=== PATIENT | male | born 1965 | race Caucasian/White ===

== ENCOUNTER 2020-06-14 06:50 | Emergency (ER) | payer OTHER ==
[~2020-06-14] VITALS: Ht 157.5 cm; Wt 79.8 kg
[2020-06-14 07:28] VITALS: BP 149/92
[2020-06-14] MEDS ORDERED: ACETAMINOPHEN EXTRA STRENGTH 500 MG TAB PO ONE (07:30)
--- NOTE | 2020-06-14 07:55 | NUR ---
54/M BIB C/O FEVER, COUGH,MARTINEZ X 3 DAYS. FBS 230 AT THIS TIME. ORAL TEMP 100.6 AT THIS TIME.PMH:DM. PATIENT STATES PAIN OF 7/10 AT THIS TIME.
--- NOTE | 2020-06-14 07:58 | NUR ---
COVID SWAB DONE. SENT TO LAB.
[2020-06-14 08:40] VITALS: BP 121/68
--- NOTE | 2020-06-14 08:40 | NUR ---
Patient discharged with v/s stable. Written and verbal after care instructions given and explained. Patient alert, oriented and verbalized understanding of instructions. Ambulatory with steady gait. All questions addressed prior to discharge. ID band removed. Patient advised to follow up with PMD. Rx of AZITHROMYCIN given. Patient educated on indication of medication including possible reaction and side effects. Opportunity to ask questions provided and answered.
--- NOTE | 2020-06-17 14:41 | NUR ---
Covid results received from lab. Results = POSITIVE. Hard copy requested from lab and placed in infection controls mailbox.
== END 2020-06-14 08:40 | disposition home or self-care (01) ==
LOC: MED 06:50
DX: U07.1 COVID-19 (principal); E11.9 Type 2 diabetes mellitus without complications
CPT/HCPCS: 99283; U0003

== ENCOUNTER 2020-06-16 18:56 | Inpatient (IN) | payer OTHER, SELFPAY ==
[~2020-06-16] VITALS: Ht 157.5 cm; Wt 80.7 kg
--- NOTE | 2020-06-16 19:10 | NUR ---
PT TAKEN TO BED 10
[2020-06-16 19:14] VITALS: BP 144/71
--- NOTE | 2020-06-16 19:20 | NUR ---
54 Y/O MALE PRESENTED TO ED C/O SOB & COUGH X 2 DAYS - PT WAS SEEN HERE ON 06/14/20 FOR FEVER AND WAS SWABBED COVID PCR ( STILL PENDING AT THIS TIME). PT SAO2 72% ON RM AIR. RR EVEN AND MILDLY LABORED AT REST. LUNG SOUNDS DIMINISHED BL BASES. A/O X 4. PT APPEARS DIAPHORETIC , SKIN WARM TO TOUCH. PT DENIES CP, BODY ACHES , CHILLS, N/V/D AND FEVER AT THIS TIME. PT PLACED IN GOWN . PT PLACED ON SKYLIGHTS ASSEMBLER, PULSE OX AND BP CUFF. PT SITTING UP IN BED, LOCKED AND IN LOWEST POSITION, SIDE RAIL X1. PT PLACED ON NRB 15L AT THIS TIME. ERMD MADE AWARE OF PT STATUS. PMH: FELIPE RAMIREZ
--- NOTE | 2020-06-16 19:47 | NUR ---
Dr. Child examining patient.
--- NOTE | 2020-06-16 19:55 | NUR ---
BLOOD CULTURES, BLOOD LABS, COVID FARA SWAB AND URINE COLLECTED AND HANDED TO WILBER DE OLIVEIRA TECH AT THIS TIME.
--- NOTE | 2020-06-16 20:00 | NUR ---
RT CALLED FOR CONSULTATION ON PT NEED FOR HIGH FLOW O2 AT THIS TIME.
--- NOTE | 2020-06-16 20:00 | NUR ---
XRAY AT BEDSIDE.
[2020-06-16] MEDS ORDERED: AZITHROMYCIN 500 MG in DEXTROSE 5% 250 ML IV ONE (20:10)
[2020-06-16] MEDS ORDERED: DEXAMETHASONE 10 MG/ML VIAL IVP ONE (20:10)
--- NOTE | 2020-06-16 20:10 | NUR ---
RT AT BEDSIDE FOR RESPIRATORY ASSESSMENT.
[2020-06-16] MEDS ORDERED: cefTRIAXone 1,000 MG VIAL ONE (20:14)
[2020-06-16] MEDS ORDERED: AZITHROMYCIN 500 MG INJ VIAL IV ONE (20:14)
[2020-06-16] MEDS ORDERED: ACETAMINOPHEN 325 MG TAB PO ONE (20:15)
--- NOTE | 2020-06-16 20:15 | NUR ---
PER SO , RT - IF PT FALLS BELOW SAO2 OF 90% CALL RT FOR ADMINISTRATION OF HIGH FLOW.
--- NOTE | 2020-06-16 20:17 | NUR ---
RENNY STRICKLAND FOR UPDATES [phone]. PRIMARY RN MADE AWARE.
[2020-06-16 20:22] LABS: HEMATOCRIT 39.7 % (36-52); HEMOGLOBIN 13.1 g/dL (12.0-18.0); MEAN CORPUSCULAR HEMOGLOBIN 29 pg (27-31); MEAN CORPUSCULAR HGB CONC 33 g/dL (33-37); MEAN CORPUSCULAR VOLUME 86.2 fL (80-94); PLATELET COUNT (AUTO) 284 K/uL (140-450)
[2020-06-16 20:24] LABS: APPEARANCE,URINE CLEAR (CLEAR); BILIRUBIN,URINE NEGATIVE (NEGATIVE); BLOOD, URINE TRACE-I (NEGATIVE); COLOR,URINE YELLOW (YELLOW); LEUKOCYTE ESTERASE ,URINE NEGATIVE (NEGATIVE); NITRITE, URINE NEGATIVE (NEGATIVE); PH,URINE 5.5 (5.0-9.0); UGLUCOSE 3+ (NEGATIVE)
[2020-06-16 20:35] LABS: PROTHROMBIN TIME 10.4 secs (10.8-13.4)
[2020-06-16 20:39] LABS: ALBUMIN 3.2 g/dL (3.4-5.0); ANION GAP 15.2 (8-16); CARBON DIOXIDE 26.9 mmol/L (21-32); CREATININE 1.2 mg/dL (0.6-1.3); POTASSIUM 4.1 mmol/L (3.5-5.1); TOTAL BILIRUBIN 0.5 mg/dL (0.0-1.0)
[2020-06-16 20:43] LABS: LYMPHOCYTES % (MANUAL) 2 % (20-46); MONOCYTES % (MANUAL) 1 % (5-12)
[2020-06-16 20:51] LABS: C-REACTIVE PROTEIN QUANT 36.3 mg/dL (0.0-0.9); LACTATE DEHYDROGENASE 373 U/L (85-227)
[2020-06-16] MEDS ORDERED: NACL 0.9% 1,000 ML IV ONE (21:20)
[2020-06-16] MEDS ORDERED: ACETAMINOPHEN 325 MG TAB PO PRN (21:35)
[2020-06-16] MEDS ORDERED: ONDANSETRON 4 MG/2 ML VIAL IVP PRN (21:35)
[2020-06-16] MEDS ORDERED: LOVENOX 1MG/KG Q12H SUBQ SCH (21:35)
[2020-06-16] MEDS ORDERED: BENZONATATE 100 MG CAPLF PO PRN (21:35)
--- NOTE | 2020-06-16 21:39 | NUR ---
PT PROVIDED W/ URINAL AT THIS TIME.
--- NOTE | 2020-06-16 21:39 | NUR ---
PT SITTING UPRIGHT IN BED , C/O OF COUGH AND SOB . PT CURRENT SA02 90%
--- NOTE | 2020-06-16 21:40 | NUR ---
DR. STEWART PAGED FOR PRN COUGH MEDICINE AT THIS TIME.
--- NOTE | 2020-06-16 21:47 | NUR ---
SPOKE W/ GRACIE AT AFTER HOURS PHARMACY FOR VERIFICATION OF MEDICATION AT THIS TIME.
[2020-06-16] MEDS ORDERED: ENOXAPARIN 80 MG/0.8 ML SYR SUBQ ONE (21:55)
[2020-06-16] MEDS: guaiFENesin DM 200/20 MG-10 ML 10 ML UDC PO PRN (21:59)
--- NOTE | 2020-06-16 22:17 | NUR ---
PER [facility] RT PARAMETERS - CALLED RT FOR PT LOW SAO2 87% AT THIS TIME.
[2020-06-16] MEDS ORDERED: ASPI-1822 PO (22:36)
[2020-06-16] MEDS ORDERED: METF500T2 PO (22:36)
[2020-06-16] MEDS ORDERED: LISI10TA11 PO (22:36)
[2020-06-16] MEDS ORDERED: AMLO10TA89 PO (22:36)
--- NOTE | 2020-06-16 22:39 | NUR ---
Patient will be admitted to care of DR. LEE. Admited to TELEMETRY. Will go to room 111A. Belongings list completed. Report to KIKE VICTOR.
--- NOTE | 2020-06-16 22:51 | NUR ---
PER PT AUTHORIZATION , SPOKE W/ DAUGHTER REGARDING PT ADMITTING STATUS AT THIS TIME.
--- NOTE | 2020-06-16 23:05 | NUR ---
PT TRANSFERRED VIA GURNEY TO TELEMETRY FLOOR , RM 111A AT THIS TIME. PT PRIMARY TELEMETRY NURSE, KAYLEIGH STOKES MADE AWARE PT IN BED AND PLACED ON AEROSOL LINE OPERATOR.
[2020-06-16 23:21] VITALS: BP 148/74
--- NOTE | 2020-06-16 23:21 | NUR ---
RECEIVED PATIENT FROM THE ER NURSE. PATIENT IS AWAKE, ALERT, AND ORIENTED X4. RESPIRATIONS IS EVEN AND UNLABORED. PATIENT IS ON A 15 L NRB MASK. 02 SATURATION AT 92%. SKIN IS INTACT AND WARM AND DRY. 18 G IV ON RAC AND LAC. BOTH IV PATENT AND INTACT. SAFETY MEASURES IN PLACE. BED IN LOW POSITION AND CALL LIGHT WITHIN REACH. WILL CONTINUE TO MONITOR.
--- NOTE | 2020-06-16 23:22 | NUR ---
SPOKE W/ KIKE VICTOR - PER LAB PT CURRENT LACTIC ACID 2.5.
--- NOTE | 2020-06-17 01:25 | NUR ---
MOVED PATIENT TO ROOM 106B. NO DISTRESS NOTED. WILL CONTINUE TO MONITOR
[2020-06-17] MEDS: guaiFENesin DM 200/20 MG-10 ML 10 ML UDC PO PRN ×2 (02:29→14:17)
--- NOTE | 2020-06-17 02:29 | NUR ---
PT COMPLAIN OF COUGH AND REQUESTED A COUGH MEDICATION. GAVE PATIENT ROBITUSSIN TO ALLEVIATE THE COUGH.
--- NOTE | 2020-06-17 03:26 | NUR ---
CHECK ON PATIENT. PATIENT IS AWAKE AND ALERT. ON 15 L NRB MASK AND NO RESPIRATORY DISTRESS IS NOTED. WILL CONTINUE TO MONITOR.
[2020-06-17 04:00] VITALS: BP 137/78
--- NOTE | 2020-06-17 06:40 | NUR ---
CHECK ON PATIENT. PATIENT IS AWAKE AND ALERT. ON 15 L NRB MASK AND NO RESPIRATORY DISTRESS IS NOTED. WILL CONTINUE TO MONITOR.
[2020-06-17 07:20] LABS: HEMATOCRIT 38.8 % (36-52); HEMOGLOBIN 12.8 g/dL (12.0-18.0); LYMPHOCYTES # (AUTO) 0.8 K/uL (2.0-11.5); LYMPHOCYTES % (AUTO) 3.9 % (20.5-51.1); MEAN CORPUSCULAR HEMOGLOBIN 29 pg (27-31); MEAN CORPUSCULAR HGB CONC 33 g/dL (33-37); MEAN CORPUSCULAR VOLUME 86.9 fL (80-94); MONOCYTES # (AUTO) 0.3 K/uL (0.8-1.0); MONOCYTES % (AUTO) 1.6 % (1.7-9.3); NEUTROPHILS # (AUTO) 18.8 K/uL (1.8-7.7); NEUTROPHILS % (AUTO) 94.5 % (42.2-75.2); PLATELET COUNT (AUTO) 299 K/uL (140-450); RED BLOOD CELL COUNT(AUTO) 4.46 MIL/uL (4.20-6.10); WHITE BLOOD COUNT (AUTO) 19.9 K/uL (4.8-10.8)
--- NOTE | 2020-06-17 07:20 | NUR ---
ENDORSED TO DAY SHIFT NURSE FOR CONTINUITY OF CARE. PT IS STABLE. NO DISTRESS NOTED
--- NOTE | 2020-06-17 07:21 | NUR ---
RECEIVED PT FROM [facility] VICE PRESIDENT NURSE, PT IS AWAKE IN BED, IV NOTED TO RAC AND LAC SALINE LOCK, NRB @ 15 L, TELE MONITOR ON, CONTINENT, SAFETY AND FALL PRECAUTIONS IN PLACE, WILL MONITOR PT.
[2020-06-17 07:45] LABS: ANION GAP 16.2 (8-16); CARBON DIOXIDE 25.3 mmol/L (21-32); CREATININE 0.9 mg/dL (0.6-1.3); MAGNESIUM 2.2 mg/dL (1.8-2.4); PHOSPHORUS 2.6 mg/dL (2.5-4.9); POTASSIUM 4.5 mmol/L (3.5-5.1); TOTAL BILIRUBIN 0.4 mg/dL (0.0-1.0)
[2020-06-17 08:00] VITALS: BP 154/100
[2020-06-17] MEDS: ENOXAPARIN 80 MG/0.8 ML SYR SUBQ SCH ×2 (08:24→20:47)
--- NOTE | 2020-06-17 08:25 | NUR ---
SCHEDULED MEDICATION ADMINISTERED, PT IS SITING UP IN BED, PT TOLERATED INJECTION WELL, EDUCATION PROVIDED, PT VERBALIZED UNDERSTANDING, WILL CONTINUE TO MONITOR.
--- NOTE | 2020-06-17 08:43 | NUR ---
PATIENT HAS BEEN SCREENED AND CATEGORIZED MODERATE NUTRITION RISK. PATIENT WILL BE SEEN WITHIN 3-5 DAYS OF ADMISSION. 06/19/20 06/21/[address]
[2020-06-17] MEDS: HYDROcodone/APAP 5/325 MG 1 TAB TAB PO PRN (09:45)
--- NOTE | 2020-06-17 10:15 | NUR ---
PT IS SITTING IN BED, PT STATES PAIN 8 OUT OF 10 HEADACHE, NORCO ADMINISTERED, WILL CONTINUE TO MONITOR.
--- NOTE | 2020-06-17 11:22 | NUR ---
DC PLANNIN YRS OLD MALE PATIENT WAS ADMITTED FROM HOME WITH A DX OF COVID PNEUMONIA. PT HAS A HX OF DM . CXR SHOWED BILATERAL INFILTRATES. RAPID COVID TEST POSITIVE ON 15L NON-REBREATHER . STARTED COVID PROTOCOL IVF, IV AZITHROMYCIN AND ROCEPHIN AND DECADRON . CONSULTED WITH DR VARGAS LEVY. DC PLAN PER PT RESPOND TO THE TREATMENT. CM TO FOLLOW Addendum: 06/27/20 at 1322 by Quyen Yap CM DC HARNESSMAKER APPRENTICE: FAXED ORDER FOR HOME 02 TO [facility]. WILL FOLLOW UP Addendum: 06/27/20 at 1544 by Quyen Yap CM DC HARNESSMAKER APPRENTICE: SPOKE TO JOSE MARIA AT [employer] TO GET AN ETA ON OXYGEN. HE STATED THAT THEY ARE REALLY BUSY AND DOES NOT BELIEVE IT WILL BE DELIVERED TODAY. HE PROVIDED ME A NUMBER TO FOLLOW UP WITH FOR THE CORPORATE OFFICE AND TOLD ME TO ASK FOR THE [employer] TEAM [phone]. SPOKE TO YULIA AT [facility] THEY RECEIVED ORDER AND CONFIRMED THAT THE OXYGEN WILL BE DELIVERED TODAY AFTER 6:00 PM
[2020-06-17 12:00] VITALS: BP 151/63
--- NOTE | 2020-06-17 12:30 | NUR ---
PT IS SITTING UP IN BED, FAMILY IS OUTSIDE THE HOSPITAL ROOM VISITING, PT IS CURRENTLY ON HOSPITAL PHONE WITH FAMILY, WILL CONTINUE TO MONITOR.
--- NOTE | 2020-06-17 14:02 | NUR ---
PT STATES HE HAS THROAT IRRITATION FROM COUGH, WILL ADMINISTER PRN ROBITUSSIN, WILL CONTINUE TO MONITOR
--- NOTE | 2020-06-17 14:21 | NUR ---
CHANTELLEITUSSIN ADMINISTERED, PT TOLERATED MEDICATION WELL, EDUCATION PROVIDED, PT VERBALIZED UNDERSTANDING, WILL CONTINUE TO MONITOR.
[2020-06-17] MEDS ORDERED: DEXTROSE 50% 50 ML SYR IVP PRN (14:30)
--- NOTE | 2020-06-17 15:45 | NUR ---
PCR SAMPLE TAKEN AND SENT TO LAB, PT IS RESTING IN BED, O2 SATURATION 93%, PT STATED IMPROVEMENT IN COUGH, WILL CONTINUE TO MONITOR.
[2020-06-17 16:00] VITALS: BP 162/85
[2020-06-17] MEDS: BLOOD GLUCOSE MONITORING 1 DEV DEV FS SCH ×2 (16:47→21:28)
[2020-06-17] MEDS: INSULIN LISPRO SLIDING SCALE 100 UNITS/ML VIAL SUBQ PRN ×2 (17:01→20:48)
[2020-06-17] MEDS ORDERED: remdesivir COMMUNICATION ORDER 1 EA MISC MC PRN (17:05)
--- NOTE | 2020-06-17 17:24 | NUR ---
BP NOTED TO BE 162/85, DR. SHELTON WAS NOTIFIED , AWAITING RESPONSE, WILL CONTINUE TO MONITOR.
[2020-06-17] MEDS ORDERED: CLINICAL MONITORING MC PRN (17:25)
--- NOTE | 2020-06-17 17:47 | NUR ---
DR. SHELTON ORDERED AMLODIPINE AND LISINOPRIL TO BE ADMINISTERED TODAY R/T ELEVATED BP (162/85), WILL FOLLOW THROUGH WITH ORDER AND CONTINUE TO MONITOR.
[2020-06-17] MEDS ORDERED: amLODIPine 5 MG TAB PO SCH (18:00)
[2020-06-17] MEDS ORDERED: lisinopriL 10 MG TAB PO SCH (18:00)
--- NOTE | 2020-06-17 18:10 | NUR ---
SCHEDULED MEDICATION ADMINISTERED W/IN PARAMETERS, BP 168/88, HR 82, RR 32, O2 91, PT TOLERATED MEDICATION WELL, PT EDUCATION PROVIDED, PT VERBALIZED UNDERSTANDING, WILL CONTINUE TO MONITOR.
[2020-06-17] MEDS ORDERED: REMDESIVIR (EUA) 200 MG in NACL 0.9% 100 ML IV SCH (18:30)
--- NOTE | 2020-06-17 18:39 | NUR ---
PT WILL NOT SIGN CONSENT FOR PLASMA UNTIL THE MD IS ABLE TO EXPLAIN PROCESS AND RISK. PT STATES THAT HE IS OPEN TO USE ONCE HE UNDERSTANDS.
--- NOTE | 2020-06-17 19:20 | NUR ---
ENDORSED PT TO PARKING LOT CHAUFFEUR NURSE FOR CONTINUITY OF CARE.
--- NOTE | 2020-06-17 19:25 | NUR ---
RECEIVED PATIENT FROM THE DAYSHIFT NURSE. PATIENT IS AWAKE, ALERT, AND ORIENTED X4. RESPIRATIONS IS EVEN AND UNLABORED. PATIENT IS ON A 15 L NRB MASK. 02 SATURATION AT 90%. SKIN IS INTACT AND WARM AND DRY. 18 G IV ON RAC AND [place]. BOTH IV PATENT AND INTACT. SAFETY MEASURES IN PLACE. BED IN LOW POSITION AND CALL LIGHT WITHIN REACH. WILL CONTINUE TO MONITOR.
[2020-06-17 20:00] VITALS: BP 157/91
[2020-06-17] MEDS ORDERED: DEXAMETHASONE 4 MG/ML VIAL IVP SCH (20:00)
[2020-06-17] MEDS ORDERED: AZITHROMYCIN 500 MG in DEXTROSE 5% 250 ML IV SCH (20:30)
--- NOTE | 2020-06-17 20:48 | NUR ---
BLOOD GLUCOSE CHECK IS 288. INSULIN COVERAGE NEEDED. GAVE 6 UNITS OF INSULIN SQ.
--- NOTE | 2020-06-17 20:50 | NUR ---
ALL SCHEDULED MEDS WERE GIVEN. PT IS STABLE AND NO DISTRESS NOTED. WILL CONTINUE TO MONITOR.
--- NOTE | 2020-06-17 20:59 | NUR ---
DR. KAYE REQUESTED ALL ANTIBIOTICS TO BE DISCONTINUED.
--- NOTE | 2020-06-17 20:59 | NUR ---
ROCEPHIN WAS PREPARED BUT DR AKYE REQUESTED THE ANTIBIOTIC TO BE DISCONTINUED. THE ANTIBIOTIC WAS NOT ADMINISTERED SCHEDULED.
[2020-06-17] MEDS ORDERED: LOVENOX 1MG/KG Q12H SUBQ SCH (21:00)
--- NOTE | 2020-06-17 21:45 | NUR ---
CHECK ON PATIENT. PATIENT IS AWAKE AND ALERT. ON 15 L NRB MASK AND NO RESPIRATORY DISTRESS IS NOTED. WILL CONTINUE TO MONITOR.
[2020-06-18] VITALS: BP 144/79
--- NOTE | 2020-06-18 00:10 | NUR ---
CHECKED PATIENT. PATIENT IS ASLEEP, RESPIRATION EVEN UNLABORED ON 15 L NRB O2 SATING 90% NO DISTRESS NOTED. WILL CONTINUE TO MONITOR
--- NOTE | 2020-06-18 02:16 | NUR ---
CHECKED ON PATIENT. PATIENT IS STABLE AND SITTING ON THE EDGE OF THE BED. REQUESTED A WARM BLANKET AND COFFEE. NO DISTRESS NOTED. WILL CONTINUE TO MONITOR.
[2020-06-18 04:00] VITALS: BP 156/78
--- NOTE | 2020-06-18 04:21 | NUR ---
CHECKED PATIENT. PATIENT IS ASLEEP AND STABLE. NO DISTRESS NOTED WILL CONTINUE TO MONITOR.
[2020-06-18] MEDS: BLOOD GLUCOSE MONITORING 1 DEV DEV FS SCH ×4 (06:44→20:26)
[2020-06-18] MEDS: INSULIN LISPRO SLIDING SCALE 100 UNITS/ML VIAL SUBQ PRN ×4 (06:44→20:30)
--- NOTE | 2020-06-18 06:46 | NUR ---
BLOOD GLUCOSE CHECK IS 240. INSULIN COVERAGE NEEDED. 4 UNITS OF INSULIN SQ ADMINISTERED
--- NOTE | 2020-06-18 07:18 | NUR ---
ENDORSED TO DAY SHIFT NURSE FOR CONTINUITY OF CARE. PT IS STABLE. NO DISTRESS NOTED
[2020-06-18 08:00] VITALS: BP 137/71
[2020-06-18 08:05] LABS: ALBUMIN 2.9 g/dL (3.4-5.0); ANION GAP 13.7 (8-16); CARBON DIOXIDE 25.6 mmol/L (21-32); CREATININE 0.8 mg/dL (0.6-1.3); POTASSIUM 4.3 mmol/L (3.5-5.1); TOTAL BILIRUBIN 0.4 mg/dL (0.0-1.0)
[2020-06-18] MEDS: lisinopriL 10 MG TAB PO SCH (09:04)
[2020-06-18] MEDS: DEXAMETHASONE 10 MG/ML VIAL IVP SCH (09:04)
[2020-06-18] MEDS: amLODIPine 5 MG TAB PO SCH (09:05)
[2020-06-18] MEDS: ENOXAPARIN 80 MG/0.8 ML SYR SUBQ SCH ×2 (09:05→20:18)
--- NOTE | 2020-06-18 09:19 | NUR ---
ADMINISTERED MEDICATIONS PRESCRIBED, PT IV SITE SITE DRY, CLEAN, INTACT, FLUSHED WELL WITH 3MKL NS FOR IVP MED OF DECADRON 6MG. PT ON 15L NON REBREATHER ON PRONE POSITION WITH SATURATION OF 95%. BED LOWEST POSITION, CALL LIGHT WITHIN REACH, PT R. LOWER LUNG DIMINISHED. A/Ox4 , [place] SPEAKING
--- NOTE | 2020-06-18 11:16 | NUR ---
PT LAYING PRONE POSITION. STATES WILL LAY ON SIDE AND IF FEELS SOB WILL RETURN TO PRONE, DENIES PAIN AT THIS TIME. IV PATENT, DRY, INTACT. CALL LIGHT WITHIN REACH. BED LOWEST POSITION
--- NOTE | 2020-06-18 11:59 | NUR ---
DR. ALLEN AT BEDSIDE REVIEWING PLAN OF CARE WITH PATIENT. WILL CONTINUE TO MONITOR.
[2020-06-18 12:00] VITALS: BP 162/71
[2020-06-18] MEDS: REMDESIVIR (EUA) 100 MG in NACL 0.9% 100 ML IV SCH (12:26)
--- NOTE | 2020-06-18 12:50 | NUR ---
ADMINISTERED 4UNITS HUMALOG R.UPPER DELTOID, STARTED REMDESIVIR 100 AT 133ML/HR. FLUSHED IV WITH 5ML NS, PATENT. INSTRUCTED PT ON USE OF IS. ADVISED TO ATTEMPT 10XHOUR. PT VERBALIZED UNDERSTANDING, ATTEMPTED TO USE, BEGAN COUGHING. ADVISED TO ATTEMPT AGAIN AFTER LUNCH AND TO STOP IF COUGHING BECOMES SEVERE.
--- NOTE | 2020-06-18 15:28 | NUR ---
PATIENT LYING PRONE IN BED. NO DISTRESS NOTED. CONDITION UNCHANGED. WILL CONTINUE TO MONITOR.
[2020-06-18 16:00] VITALS: BP 113/59
--- NOTE | 2020-06-18 18:17 | NUR ---
ADMINISTERED INSULING PER SLIDING SCALE, DINNER AT BEDSIDE, PT ON 15 L NRB, COUGHING, STATES HAS BEEN PERFORMING IS EVERY HOUR. DOES NOT COMPLAIN OF PAIN AT THIS TIME. COMFORTABLY SITTING UP IN BED, SAT OF 92%
--- NOTE | 2020-06-18 19:30 | NUR ---
ENDORSED PT TO NIGHT NURSE, PT RESTING COMFORTABLY, BED LOWEST POSITION. CALL LIGHT WITHIN REACH. PT STABLE
--- NOTE | 2020-06-18 19:32 | NUR ---
RECEIVED PT IN STABLE CONDITION FROM AM NURSE. AWAKE, ALERT AND ORIENTED X4. ON TELE MONITOR. COVID +. DROPLET ISOLATION NRM 15L. SITTING ON THE SIDE OF THE BED. NO SOB NOTED. HAS IV ACCESS ON THE RT ACG#178. IV KVO. PLAN OF CARE. DISCUSSED. VERBALIZED UNDERSTANDING. BED ON LW POSITION. SIDE RAILS UP X2. CALL LIGHT PLACED WITHIN REACH. WILL CONTINUE TO MONITOR.
[2020-06-18 20:00] VITALS: BP 120/68
[2020-06-18] MEDS: ASCORBIC ACID 500 MG TAB PO SCH (20:17)
[2020-06-18] MEDS: ZINC SULF 220 MG CAP PO SCH (20:17)
[2020-06-18] MEDS: guaiFENesin DM 200/20 MG-10 ML 10 ML UDC PO PRN (20:21)
[2020-06-18] MEDS: INSULIN LANTUS 100 UNITS/ML 10 ML VIAL SUBQ SCH (20:28)
--- NOTE | 2020-06-18 20:30 | NUR ---
BLOOD SUGAR WAS CHECKED RESULT 322. HUMALOG 8 UNITS SUBQ GIVNE ON THE RT UPPER ARM. LANTUS 10 UNITS ALSO GIVEN SUBQ. WILL CONTINUE TO MONITOR PT.
--- NOTE | 2020-06-18 21:00 | NUR ---
CHECKED ON PT. SITTING ON SIDE OF BED. O2 SAT ONLY 76 % WITH NRM 15L. SORT MADE AWARE. WILL CHECK ON PT.
--- NOTE | 2020-06-18 21:10 | NUR ---
DARYN.RT CAME AND TALKED TO PT. EXPLAINED TO LAY ON HIS ABDOMEN, PRONE POSITION. HE ASSISTED PT TON PROPER POSITIONING. ON SAT GOING BACK TO 87%. NO SONB NOTED. WILL STILL CONTINUE TO MONITOR.
--- NOTE | 2020-06-18 21:26 | NUR ---
PT WAS ASKED TO PRONE DUE TO SPO2 PT COMPLIED AND SPO2 INCREASED TO 87% WILL CONTINUE TO MONITTOR
--- NOTE | 2020-06-18 22:38 | NUR ---
LAB CALLED FOR PCR COVID TEST RESULT-POSITIVE. PT ALREADY ON DROPLET ISOLATION . ON ANTIBIOTICS.
--- NOTE | 2020-06-18 22:45 | NUR ---
CHECKED ON PT. SLEEPING ON PRONE POSITION. O2 SAT 91% ON NRM.
[2020-06-19] VITALS: BP 129/71
--- NOTE | 2020-06-19 00:55 | NUR ---
CHECKED ON PT. SLEEPING. O2 SAT 92% AT THIS TIME 92%.
--- NOTE | 2020-06-19 02:00 | NUR ---
CHECKED ON PT. ASLEEP. TELE MONITOR LT SIDE DISCONNECTED. PUT BACK INTO PROPER PLACE. HR 64 /MIN. O2 SAT 89%-90%.
--- NOTE | 2020-06-19 03:10 | NUR ---
CHECKED ON PT. ASLEEP. NO SOB NOTED. WILL CONTINUE TO MONITOR.
[2020-06-19 04:00] VITALS: BP 113/71
--- NOTE | 2020-06-19 05:48 | NUR ---
BLOOD SUGAR WAS CHECKED RESULT 203. WILL GIVE HUMALOG 4 UNITS SUBQ ON THE RT UPPER ARM.
[2020-06-19] MEDS: BLOOD GLUCOSE MONITORING 1 DEV DEV FS SCH ×4 (05:49→20:26)
[2020-06-19] MEDS: INSULIN LISPRO SLIDING SCALE 100 UNITS/ML VIAL SUBQ PRN ×4 (05:51→20:24)
--- NOTE | 2020-06-19 07:20 | NUR ---
ENDORSED PT IN STABLE CONDITION TO AM NURSE.
[2020-06-19 08:16] LABS: MAGNESIUM 2.2 mg/dL (1.8-2.4); PHOSPHORUS 3.1 mg/dL (2.5-4.9)
[2020-06-19 08:17] VITALS: BP 115/61
--- NOTE | 2020-06-19 08:17 | NUR ---
PT SITTING AT THE SIDE OF BED, STATED NO PAIN. PT TOLERATING NRB AT 15 LPM.
[2020-06-19 08:19] LABS: ALBUMIN 2.5 g/dL (3.4-5.0); ANION GAP 12.4 (8-16); CARBON DIOXIDE 28.7 mmol/L (21-32); CREATININE 0.7 mg/dL (0.6-1.3); POTASSIUM 4.1 mmol/L (3.5-5.1); TOTAL BILIRUBIN 0.4 mg/dL (0.0-1.0)
[2020-06-19 08:21] LABS: BASOPHILS % (AUTO) 0.2 % (0.0-2.0); HEMOGLOBIN 12.4 g/dL (12.0-18.0); LYMPHOCYTES # (AUTO) 1.2 K/uL (2.0-11.5); MEAN CORPUSCULAR HEMOGLOBIN 28 pg (27-31); MEAN CORPUSCULAR HGB CONC 33 g/dL (33-37); MEAN CORPUSCULAR VOLUME 86.5 fL (80-94); MONOCYTES # (AUTO) 1.1 K/uL (0.8-1.0); MONOCYTES % (AUTO) 7.6 % (1.7-9.3); NEUTROPHILS # (AUTO) 12.7 K/uL (1.8-7.7); PLATELET COUNT (AUTO) 363 K/uL (140-450); RED BLOOD CELL COUNT(AUTO) 4.39 MIL/uL (4.20-6.10); RED CELL DISTRIBUTION WIDTH 13.3 % (11.6-13.7); WHITE BLOOD COUNT (AUTO) 15.1 K/uL (4.8-10.8)
[2020-06-19 08:56] LABS: LYMPHOCYTES % (AUTO) 7.8 % (20.5-51.1); NEUTROPHILS % (AUTO) 84.4 % (42.2-75.2)
[2020-06-19] MEDS: ZINC SULF 220 MG CAP PO SCH ×2 (09:39→20:12)
[2020-06-19] MEDS: DEXAMETHASONE 10 MG/ML VIAL IVP SCH (09:40)
[2020-06-19] MEDS: ASCORBIC ACID 500 MG TAB PO SCH ×2 (09:40→20:12)
[2020-06-19] MEDS: lisinopriL 10 MG TAB PO SCH (09:40)
[2020-06-19] MEDS: amLODIPine 5 MG TAB PO SCH (09:40)
[2020-06-19] MEDS: ENOXAPARIN 80 MG/0.8 ML SYR SUBQ SCH ×2 (09:45→20:25)
[2020-06-19] MEDS: REMDESIVIR (EUA) 100 MG in NACL 0.9% 100 ML IV SCH (11:42)
[2020-06-19 12:00] VITALS: BP 127/59
[2020-06-19] MEDS: guaiFENesin DM 200/20 MG-10 ML 10 ML UDC PO PRN ×2 (12:15→20:26)
--- NOTE | 2020-06-19 12:19 | NUR ---
PT IS SITTING AT THE SIDE OF BED AND EATING. STATED NO PAIN, EXHIBITED COUGH THAT IS MILDLY PRODUCTIVE. PT GIVEN PRN MED FOR COUGH, ENCOURAGED PRONE POSITIONING AFTER EATING.
--- NOTE | 2020-06-19 13:48 | NUR ---
Covid results received from lab. Results = POSITIVE. Hard copy requested from lab and placed in infection controls mailbox.
--- NOTE | 2020-06-19 14:35 | NUR ---
PT STATED NO PAIN OR DISCOMFORT; IN SEMI FOWLERS IN BED AND TOLERATING NRB 15 LPM.
[2020-06-19 16:00] VITALS: BP 112/61
--- NOTE | 2020-06-19 17:43 | NUR ---
PT PRONING ON BED, STATES NO PAIN. PT TOLERATING NRB 15 LPM. PT STABLE AND WILL ENDORSE CARE TO CUSTOMER CARE PROFESSIONAL RN.
--- NOTE | 2020-06-19 19:00 | NUR ---
Patient's Plan of Care was discussed and reviewed with MARGIN TRIMMER: DIANNA MART
--- NOTE | 2020-06-19 19:10 | NUR ---
RECD. SITTING ON BED, AWAKE, A/OX4. RESPIRATION EVEN AND UNLABORED. 0N 02 AT 15 L NON-REBREATHER, SATURATING 89 - 90%. SKIN COLOR NORMAL PER ETHNICITY. STATED HE HAS MINIMAL AMOUNT OF WHITE CREAMY PHLEGM WHENEVER HE COUGH. IV SALINE LOCK AT THE LEFT AC G18 PATENT AND INTACT. SAFETY MEASURES ENFORCED. BED IN THE LOWEST POSITION. USES THE URINAL BUT ABLE TO AMBULATE BY HIMSELF. REMINDED TO USE THE INCENTIVE SPIROMETER AT BEDSIDE, KNOWS HOW TO USE IT. DENIES PAIN 0/10.
[2020-06-19 20:00] VITALS: BP 113/57
[2020-06-19] MEDS: INSULIN LANTUS 100 UNITS/ML 10 ML VIAL SUBQ SCH (20:21)
--- NOTE | 2020-06-19 20:25 | NUR ---
DUE PO MEDICATIONS GIVEN.
[2020-06-20] VITALS: BP 126/69
--- NOTE | 2020-06-20 | NUR ---
SLEEPING COMFORTABLY ON HIS LEFT SIDE.
--- NOTE | 2020-06-20 02:00 | NUR ---
SITTING ON BED, 02 SAT -89 90%. NO SOB NOTED.
[2020-06-20 04:00] VITALS: BP 133/65
--- NOTE | 2020-06-20 04:00 | NUR ---
VERBALIZED THAT HE FEELS HUNGRY. APPLE JUICE GIVEN REQUESTED.
--- NOTE | 2020-06-20 06:00 | NUR ---
SITTING ON BED, 02 SAT DECREASED TO 88% BUT GOES UP TO 90% WHEN CHANGING POSITION IN BED.
[2020-06-20] MEDS: BLOOD GLUCOSE MONITORING 1 DEV DEV FS SCH ×4 (06:55→21:00)
[2020-06-20] MEDS: INSULIN LISPRO SLIDING SCALE 100 UNITS/ML VIAL SUBQ PRN ×3 (06:57→17:51)
--- NOTE | 2020-06-20 07:30 | NUR ---
ENDORSED TO KIKE LESTER FOR CONTINUITY OF CARE.
[2020-06-20 08:00] VITALS: BP 128/71
[2020-06-20 08:34] LABS: MAGNESIUM 2.3 mg/dL (1.8-2.4); PHOSPHORUS 3.3 mg/dL (2.5-4.9)
[2020-06-20 08:39] LABS: BASOPHILS % (AUTO) 0.3 % (0.0-2.0); HEMATOCRIT 37.7 % (36-52); HEMOGLOBIN 12.3 g/dL (12.0-18.0); LYMPHOCYTES # (AUTO) 1.4 K/uL (2.0-11.5); LYMPHOCYTES % (AUTO) 9.7 % (20.5-51.1); MEAN CORPUSCULAR HEMOGLOBIN 28 pg (27-31); MEAN CORPUSCULAR HGB CONC 33 g/dL (33-37); MEAN CORPUSCULAR VOLUME 86.4 fL (80-94); MONOCYTES # (AUTO) 1.2 K/uL (0.8-1.0); MONOCYTES % (AUTO) 8.3 % (1.7-9.3); NEUTROPHILS # (AUTO) 11.6 K/uL (1.8-7.7); NEUTROPHILS % (AUTO) 81.7 % (42.2-75.2); PLATELET COUNT (AUTO) 428 K/uL (140-450); RED BLOOD CELL COUNT(AUTO) 4.36 MIL/uL (4.20-6.10); RED CELL DISTRIBUTION WIDTH 13.3 % (11.6-13.7); WHITE BLOOD COUNT (AUTO) 14.1 K/uL (4.8-10.8)
[2020-06-20 08:55] LABS: ALBUMIN 2.6 g/dL (3.4-5.0); ANION GAP 8.6 (8-16); CARBON DIOXIDE 30.7 mmol/L (21-32); CREATININE 0.7 mg/dL (0.6-1.3); POTASSIUM 4.3 mmol/L (3.5-5.1); TOTAL BILIRUBIN 0.4 mg/dL (0.0-1.0)
[2020-06-20] MEDS: ENOXAPARIN 80 MG/0.8 ML SYR SUBQ SCH ×2 (09:00→22:30)
[2020-06-20] MEDS: amLODIPine 5 MG TAB PO SCH (09:00)
[2020-06-20] MEDS: ZINC SULF 220 MG CAP PO SCH ×2 (09:58→22:28)
[2020-06-20] MEDS: ASCORBIC ACID 500 MG TAB PO SCH ×2 (09:58→22:28)
[2020-06-20] MEDS: DEXAMETHASONE 10 MG/ML VIAL IVP SCH (09:58)
[2020-06-20] MEDS: lisinopriL 10 MG TAB PO SCH (09:58)
[2020-06-20] MEDS: guaiFENesin DM 200/20 MG-10 ML 10 ML UDC PO PRN ×2 (10:11→17:41)
--- NOTE | 2020-06-20 10:18 | NUR ---
PATIENT SITTING AT BEDSIDE WITH NON-REBREATHER. NO DISTRESS NOTED. SCHEDULED MEDICATIONS DUE GIVEN. WILL CONTINUE TO MONITOR.
[2020-06-20 12:00] VITALS: BP 118/71
[2020-06-20] MEDS: REMDESIVIR (EUA) 100 MG in NACL 0.9% 100 ML IV SCH (12:49)
--- NOTE | 2020-06-20 12:55 | NUR ---
SCHEDULED MEDICATIONS DUE GIVEN. WILL CONTINUE TO MONITOR.
[2020-06-20 16:00] VITALS: BP 135/79
--- NOTE | 2020-06-20 17:24 | NUR ---
AWAKE AND ALERT SITTING ON SIDE OF BED "TALKING ON PHONE WITH FAMILY OUTSIDE OF ROOM/WINDOW" NO DISTRESS NOTED GOOD CHEST RISE SUPPLEMENTAL OXYGEN AT 15 LPM VIA PARTIAL REBREATHER INCENTIVE SPIROMETRY EDUCATION PROVIDED TO PATIENT ENCOURAGED PATIENT WITH ACKNOWLEDGEMENT TO USE INCENTIVE SPIROMETRY EVERY 1-2 HOURS WHILE AWAKE
--- NOTE | 2020-06-20 19:25 | NUR ---
RECEIVED REPORT AND CONTINUITY OF CARE FROM AM NURSE.
--- NOTE | 2020-06-20 19:41 | NUR ---
GAVE REPORT TO PHD INTERNSHIP NURSE FOR CONTINUITY OF CARE. PATIENT IN STABLE CONDITION.
[2020-06-20 20:00] VITALS: BP 126/62
[2020-06-20] MEDS: INSULIN LANTUS 100 UNITS/ML 10 ML VIAL SUBQ SCH (21:00)
--- NOTE | 2020-06-20 21:32 | NUR ---
PT IS A/OX4, ROMANIAN SPEAKING, HEAD IS NORMOCEPHALIC, EQUAL BILATERAL EYEBROWS, SYMMETRICAL SMILE, PMMM. TRACH MIDLINE, NO JVD NOTED AT THIS TIME. CHEST IS SYMMETRICAL, BREATHING SPONTANEOUSLY ON 15L 02 VIA NON-REBREATHER MASK, RESPIRATIONS EVEN AND UNLABORED. TELE MONITOR ATTACHED. ABD IS SOFT AND NON-TENDER, ACTIVE BOWEL TONES NOTED. SKIN IS WARM, SMOOTH, CDI, IV IS PATENT AND ASYMPTOMATIC. NORMAL SKIN TURGOR NOTED. ADMINISTERED SCHEDULED MEDICATIONS, EDUCATION RENDERED. SAFETY PRECAUTIONS IN PLACE. ALL STAFF TO OBSERVE ISOLATION PRECAUTION.
--- NOTE | 2020-06-20 23:06 | NUR ---
PT IS SITTING AT BEDSIDE. NO SIGN OF DISTRESS.
[2020-06-21] VITALS: BP 109/47
[2020-06-21] MEDS: INSULIN LISPRO SLIDING SCALE 100 UNITS/ML VIAL SUBQ PRN ×4 (00:32→23:01)
--- NOTE | 2020-06-21 01:03 | NUR ---
PT IS SLEEPING IN PRONE POSITION. NO SIGNS OF DISTRESS NOTED.
--- NOTE | 2020-06-21 03:20 | NUR ---
PT IS SLEEPING, NO SIGNS OF DISTRESS.
[2020-06-21 04:00] VITALS: BP 116/73
--- NOTE | 2020-06-21 05:02 | NUR ---
PT IS SLEEPING.
[2020-06-21] MEDS: BLOOD GLUCOSE MONITORING 1 DEV DEV FS SCH ×4 (06:38→22:00)
--- NOTE | 2020-06-21 07:25 | NUR ---
RECEIVED ENDORSEMENT FROM INTERFACE DESIGNER, AWAKE, ALERT, WITH O2 AT 15L/MIN VIA NONREBREATHER MASK, SATURATING AT 89-90%, NON LABORED NOTED. WITH IV CANNULA G18 AT LEFT FA ON SALINE LOCK NOTED. SAFETY MEASURES IN PLACE AND CONTINUE MONITOR.
[2020-06-21 08:00] VITALS: BP 112/63
[2020-06-21 08:17] LABS: BASOPHILS % (AUTO) 0.2 % (0.0-2.0); EOSINOPHILS % (AUTO) 0.1 % (0.0-4.0); HEMATOCRIT 37.6 % (36-52); HEMOGLOBIN 12.3 g/dL (12.0-18.0); LYMPHOCYTES # (AUTO) 1.9 K/uL (2.0-11.5); LYMPHOCYTES % (AUTO) 10.9 % (20.5-51.1); MEAN CORPUSCULAR HEMOGLOBIN 28 pg (27-31); MEAN CORPUSCULAR HGB CONC 33 g/dL (33-37); MEAN CORPUSCULAR VOLUME 86.4 fL (80-94); MONOCYTES # (AUTO) 1.1 K/uL (0.8-1.0); MONOCYTES % (AUTO) 6.1 % (1.7-9.3); NEUTROPHILS # (AUTO) 14.6 K/uL (1.8-7.7); NEUTROPHILS % (AUTO) 82.7 % (42.2-75.2); PLATELET COUNT (AUTO) 496 K/uL (140-450); RED BLOOD CELL COUNT(AUTO) 4.36 MIL/uL (4.20-6.10); RED CELL DISTRIBUTION WIDTH 13.1 % (11.6-13.7); WHITE BLOOD COUNT (AUTO) 17.7 K/uL (4.8-10.8)
[2020-06-21 08:42] LABS: ALBUMIN 2.6 g/dL (3.4-5.0); ANION GAP 10.5 (8-16); CARBON DIOXIDE 29.8 mmol/L (21-32); CREATININE 0.8 mg/dL (0.6-1.3); POTASSIUM 4.3 mmol/L (3.5-5.1); TOTAL BILIRUBIN 0.4 mg/dL (0.0-1.0)
[2020-06-21 08:45] LABS: MAGNESIUM 2.2 mg/dL (1.8-2.4); PHOSPHORUS 3.2 mg/dL (2.5-4.9)
--- NOTE | 2020-06-21 09:12 | NUR ---
VOIDED FREELY AT URINAL, 150ML STRAW YELLOW URINE NOTED
[2020-06-21] MEDS: amLODIPine 5 MG TAB PO SCH (09:50)
[2020-06-21] MEDS: DEXAMETHASONE 10 MG/ML VIAL IVP SCH (09:50)
[2020-06-21] MEDS: ASCORBIC ACID 500 MG TAB PO SCH ×2 (09:51→22:00)
[2020-06-21] MEDS: lisinopriL 10 MG TAB PO SCH (09:51)
[2020-06-21] MEDS: ZINC SULF 220 MG CAP PO SCH ×2 (09:52→22:00)
[2020-06-21] MEDS: ENOXAPARIN 80 MG/0.8 ML SYR SUBQ SCH ×2 (09:59→22:00)
--- NOTE | 2020-06-21 10:01 | NUR ---
FULLY AWAKE AND ALERT, DUE MEDICATION GIVEN
[2020-06-21] MEDS: HYDROcodone/APAP 5/325 MG 1 TAB TAB PO PRN (11:25)
--- NOTE | 2020-06-21 11:39 | NUR ---
GLUCOSE-254. HUMALOG 6UNITS SUBQ PER SLIDING SCALE GIVEN Addendum: 06/21/20 at 1143 by Minnie Mckeon RN COMPLAINED OF HEADACHE 11/21, NORCO 1TAB ORDERED PRN GIVEN
[2020-06-21 12:00] VITALS: BP 109/68
[2020-06-21] MEDS: REMDESIVIR (EUA) 100 MG in NACL 0.9% 100 ML IV SCH (12:56)
--- NOTE | 2020-06-21 14:01 | NUR ---
SITTING ON BED, NOT IN DISTRESS NOTED.
--- NOTE | 2020-06-21 15:21 | NUR ---
06/21/20 RD INITIAL ASSESSMENT COMPLETED PLEASE REFER TO NUTRITION ASSESSMENT UNDER CARE ACTIVITY FOR ESTIMATED NUTRITIONAL NEEDS. 1. CONTINUE MECHANICAL SOFT CCHO 60GM DIET TOLERATED 2. CONTINUE GLUCERNA BID 3. RD TO FOLLOW-UP 3-5 DAYS, MODERATE RISK RITA CAMARGO, RD
--- NOTE | 2020-06-21 15:38 | NUR ---
BLOOD BANK CONTACTED AND SPOKE WITH MS FREED, TO THAW THE CONVALESCENT PLASMA
[2020-06-21 16:00] VITALS: BP 108/63
--- NOTE | 2020-06-21 16:01 | NUR ---
DR. SWANSON, ATTENDING MADE ROUNDS , UPDATED PATIENT STATUS
--- NOTE | 2020-06-21 16:55 | NUR ---
GLUCOSE-353, HUMALOG 10UNITS PER SLIDING SCALE GIVEN
--- NOTE | 2020-06-21 17:10 | NUR ---
PER THE BLOOD BANK PERSONNEL, BLOOD IS READY BUT STILL THAWING.
--- NOTE | 2020-06-21 18:31 | NUR ---
FULLY AWAKE, SITTING BESIDE THE BED AND NOT IN DISTRESS NOTED
--- NOTE | 2020-06-21 19:38 | NUR ---
ENDORSED TO TELEPHONE TECHNICIAN IN STABLE CONDITION FOR CONTINUITY OF CARE.
[2020-06-21 20:00] VITALS: BP 130/78
[2020-06-21] MEDS: INSULIN LANTUS 100 UNITS/ML 10 ML VIAL SUBQ SCH (22:00)
[2020-06-22] VITALS: BP 135/76
--- NOTE | 2020-06-22 | NUR ---
MADE ROUNDS , NO S/SX OF ACUTE DISTRESS
--- NOTE | 2020-06-22 02:00 | NUR ---
SLEEPING - O2 SAT WNL .
--- NOTE | 2020-06-22 03:00 | NUR ---
FIRST UNIT OF FROZEN PLASMA START - WOF FOR ANY UNTOWARDS REACTION .
--- NOTE | 2020-06-22 03:45 | NUR ---
FROZEN PLASMA COMPLETED - NO BT REACTION NOTED .
[2020-06-22 04:00] VITALS: BP 137/73
--- NOTE | 2020-06-22 04:00 | NUR ---
MADE RUNDS , NO S/SX OF ACUTE DISTRESS NOTED
[2020-06-22] MEDS: BLOOD GLUCOSE MONITORING 1 DEV DEV FS SCH ×4 (06:24→20:51)
[2020-06-22] MEDS: INSULIN LISPRO SLIDING SCALE 100 UNITS/ML VIAL SUBQ PRN ×4 (06:34→20:54)
--- NOTE | 2020-06-22 06:51 | NUR ---
NO COMPLAIN MADE - O2 SAT WNL .
--- NOTE | 2020-06-22 07:30 | NUR ---
ENDORSED - PT - STABLE .
--- NOTE | 2020-06-22 07:31 | NUR ---
RECEIVED ENDORSEMENT FROM SHIPFITTERS SUPERVISOR, AWAKE, ALERT, ORIENTEDX4, WITH O2 AT 15L/MIN VIA NON REBREATHER MASK + 5L/MIN VIA NC. SATURATING AT 89-90%,NON LABORED NOTED. WITH IV CANNULA G18 AT LEFT AC ON SALINE LOCK. SAFETY MEASURES IN PLACE AND CONTINUE MONITOR
[2020-06-22 08:00] VITALS: BP 118/75
[2020-06-22 08:25] LABS: BASOPHILS # (AUTO) 0.1 K/uL (0.00-0.22); BASOPHILS % (AUTO) 0.5 % (0.0-2.0); HEMATOCRIT 39.1 % (36-52); HEMOGLOBIN 12.8 g/dL (12.0-18.0); LYMPHOCYTES # (AUTO) 1.5 K/uL (2.0-11.5); LYMPHOCYTES % (AUTO) 8.4 % (20.5-51.1); MEAN CORPUSCULAR HEMOGLOBIN 29 pg (27-31); MEAN CORPUSCULAR HGB CONC 33 g/dL (33-37); MEAN CORPUSCULAR VOLUME 87.4 fL (80-94); MONOCYTES # (AUTO) 0.9 K/uL (0.8-1.0); MONOCYTES % (AUTO) 4.8 % (1.7-9.3); NEUTROPHILS # (AUTO) 15.3 K/uL (1.8-7.7); NEUTROPHILS % (AUTO) 86.3 % (42.2-75.2); PLATELET COUNT (AUTO) 539 K/uL (140-450); RED BLOOD CELL COUNT(AUTO) 4.47 MIL/uL (4.20-6.10); RED CELL DISTRIBUTION WIDTH 13.4 % (11.6-13.7); WHITE BLOOD COUNT (AUTO) 17.7 K/uL (4.8-10.8)
[2020-06-22 08:32] LABS: MAGNESIUM 2.3 mg/dL (1.8-2.4); PHOSPHORUS 3.3 mg/dL (2.5-4.9)
[2020-06-22 09:07] LABS: ALBUMIN 2.9 g/dL (3.4-5.0); ANION GAP 11.5 (8-16); CARBON DIOXIDE 32.1 mmol/L (21-32); CREATININE 0.8 mg/dL (0.6-1.3); POTASSIUM 4.6 mmol/L (3.5-5.1); TOTAL BILIRUBIN 0.4 mg/dL (0.0-1.0)
--- NOTE | 2020-06-22 09:10 | NUR ---
SITTING ON BED, NOT IN DISTRESS NOTED
--- NOTE | 2020-06-22 10:13 | NUR ---
FULLY AWAKE AND ALERT.DUE MEDICATION GIVEN
[2020-06-22] MEDS: amLODIPine 5 MG TAB PO SCH (10:22)
[2020-06-22] MEDS: DEXAMETHASONE 10 MG/ML VIAL IVP SCH (10:22)
[2020-06-22] MEDS: ASCORBIC ACID 500 MG TAB PO SCH ×2 (10:23→20:51)
[2020-06-22] MEDS: lisinopriL 10 MG TAB PO SCH (10:23)
[2020-06-22] MEDS: ZINC SULF 220 MG CAP PO SCH ×2 (10:23→20:51)
[2020-06-22] MEDS: ENOXAPARIN 80 MG/0.8 ML SYR SUBQ SCH ×2 (10:24→20:53)
[2020-06-22 12:00] VITALS: BP 105/46
--- NOTE | 2020-06-22 12:09 | NUR ---
GLUCOSE- 232, HUMALOG 4UNITS SUBQ PER SLIDING SCALE GIVEN
--- NOTE | 2020-06-22 14:17 | NUR ---
SITTING BESIDE THE BED, VISITED BY FAMILY AT WINDOW VIEWING, NOT IN DISTRESS NOTED
--- NOTE | 2020-06-22 15:21 | NUR ---
BLOOD BANK CONTACTED AND SPOKE WITH LOURDES, ACCORDING TO HIM NO AVAILABLE CONVALESCENT PLASMA, FOLLOW UP TONIGHT IF THERE IS DELIVERY FROM [facility]
[2020-06-22 16:00] VITALS: BP 110/56
--- NOTE | 2020-06-22 16:48 | NUR ---
SEEN AND EXAMINED BY DR. CARR, ATTENDING PHYSICIAN, UPDATE PATIENT STATUS
--- NOTE | 2020-06-22 18:11 | NUR ---
FULLY WAKE AND ALERT, NOT IN DISTRESS NOTED
--- NOTE | 2020-06-22 19:30 | NUR ---
RECEIVED OPT AAOX4 , NID - O2 SAT WNL . ON SL - FLUSHED W/ NSS - INTACT AND PATENT . SAFETY MEASURES IN PLACE . PLAN OF CARE DISCUSSED AND VERBALIZED UNDERSTANDING . CALL LIGHT WITHIN REACH . DENIES ANY PAIN . WILL CONT. TO MONITOR .
--- NOTE | 2020-06-22 19:30 | NUR ---
ENDORSED TO EMBOSSING CALENDER OPERATOR IN STABLE CONDITION FOR CONTINUITY OF CARE
[2020-06-22 20:00] VITALS: BP_SYST 114; BP_SYST 117; BP_DIAS 60; BP_DIAS 80
[2020-06-22] MEDS: INSULIN LANTUS 100 UNITS/ML 10 ML VIAL SUBQ SCH (20:52)
[2020-06-23] VITALS: BP 114/60
--- NOTE | 2020-06-23 | NUR ---
MADE ROUNDS , NO S/SX OF ACUTE DISTRESS NOTED .
[2020-06-23 04:00] VITALS: BP 117/63
--- NOTE | 2020-06-23 04:00 | NUR ---
O2 SAT WNL . NO S/SX OF ACUTE DISTRESS NOTED
[2020-06-23] MEDS: BLOOD GLUCOSE MONITORING 1 DEV DEV FS SCH ×4 (07:06→21:16)
[2020-06-23] MEDS: INSULIN LISPRO SLIDING SCALE 100 UNITS/ML VIAL SUBQ PRN ×3 (07:07→16:16)
--- NOTE | 2020-06-23 07:30 | NUR ---
ENDORSED -PT - STABLE
--- NOTE | 2020-06-23 07:30 | NUR ---
RECEIVED REPORT FROM PM RN FOR CONTINUITY OF CARE. PT IS STABLE
[2020-06-23 07:56] LABS: BASOPHILS # (AUTO) 0.1 K/uL (0.00-0.22); BASOPHILS % (AUTO) 0.8 % (0.0-2.0); EOSINOPHILS % (AUTO) 0.1 % (0.0-4.0); HEMATOCRIT 34.3 % (36-52); MEAN CORPUSCULAR HEMOGLOBIN 28 pg (27-31); MEAN CORPUSCULAR HGB CONC 32 g/dL (33-37); MEAN CORPUSCULAR VOLUME 87.1 fL (80-94); MONOCYTES # (AUTO) 0.7 K/uL (0.8-1.0); MONOCYTES % (AUTO) 5.1 % (1.7-9.3); NEUTROPHILS # (AUTO) 12.5 K/uL (1.8-7.7); PLATELET COUNT (AUTO) 555 K/uL (140-450); RED BLOOD CELL COUNT(AUTO) 3.94 MIL/uL (4.20-6.10); RED CELL DISTRIBUTION WIDTH 13.2 % (11.6-13.7); WHITE BLOOD COUNT (AUTO) 14.3 K/uL (4.8-10.8)
[2020-06-23 08:00] VITALS: BP 108/63
[2020-06-23 08:22] LABS: MAGNESIUM 2.1 mg/dL (1.8-2.4); PHOSPHORUS 3.6 mg/dL (2.5-4.9)
[2020-06-23] MEDS: DEXAMETHASONE 10 MG/ML VIAL IVP SCH (09:43)
[2020-06-23] MEDS: ASCORBIC ACID 500 MG TAB PO SCH ×2 (09:44→21:16)
[2020-06-23] MEDS: amLODIPine 5 MG TAB PO SCH (09:44)
[2020-06-23] MEDS: ZINC SULF 220 MG CAP PO SCH ×2 (09:44→21:16)
[2020-06-23] MEDS: lisinopriL 10 MG TAB PO SCH (09:45)
--- NOTE | 2020-06-23 09:45 | NUR ---
PT IS LAYING IN BED AWAKE IN NO DISTRESS. AWAKE, ALERT ORIENTED X 4. LUNG SOUNDS DIMINISHED. ABD IS SOFT AND NONTENDER WITH ACTIVE BS X 4. SAFETY MEASURES IN PLACE. CALL LIGHT WITHIN REACH. WILL CONTINUE WITH POC.
[2020-06-23] MEDS: ENOXAPARIN 80 MG/0.8 ML SYR SUBQ SCH ×2 (09:51→21:19)
--- NOTE | 2020-06-23 11:54 | NUR ---
RESTING IN BED ALL NEEDS MET.
[2020-06-23 12:00] VITALS: BP 106/64
--- NOTE | 2020-06-23 12:40 | NUR ---
BS 317 PT ASYMPTOMATIC, COVERED WITH 8 UNITS OF HUMALOG. PT DROPPED OFF BAG OF CLOTHES GIVEN TO PT. ALL NEEDS MET.
--- NOTE | 2020-06-23 14:20 | NUR ---
RESTING IN BED IN NO DISTRESS. CALL LIGHT WITHIN REACH. ALL NEEDS MET.
[2020-06-23 16:00] VITALS: BP 102/52
--- NOTE | 2020-06-23 16:49 | NUR ---
PT RESTING IN BED, DENIES ANY DISTRESS. BS 345 8 UNITS OF HUMALOG WAS GIVEN PT EDUCATED ON IMPORTANCE OF DIET AND MANAGING DM.
--- NOTE | 2020-06-23 18:40 | NUR ---
PT EATING DINNER IN NO DISTRESS, CALL LIGHT WITHIN REACH 94% ON 15L NRB
--- NOTE | 2020-06-23 19:10 | NUR ---
PT ENDORSED TO PM RN FOR CONTINUITY OF CARE. PT IS STABLE AT THIS TIME. SPO2 93% ON 15L NRB.
[2020-06-23 20:00] VITALS: BP 104/59
--- NOTE | 2020-06-23 20:00 | NUR ---
RECEIVED BEDSIDE REPORT REGARDING THE PT EARLIER FOR CONTINUITY OF CARE. PT A/A/OX3, SITTING UP IN BED WATCHING TV. DENIES ANY CHEST PAIN, SOB,DIZZINESS AND PALPITATIONS. NO SIGN AND SYMPTOMS OF DISTRESS NOTED. VSS, AFEBRILE, SATING 93% ON 15L NRB. 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 INSTRUCTED TO CALL FOR ASSISTANCE AT ALL TIMES. PT VERBALIZED UNDERSTANDING. CALL LIGHT WITHIN REACH. WILL CONTINUE POC AND MONITORING.
[2020-06-23] MEDS: INSULIN LANTUS 100 UNITS/ML 10 ML VIAL SUBQ SCH (21:18)
--- NOTE | 2020-06-23 22:00 | NUR ---
ADMINISTERED ALL SCHEDULED MEDICATIONS ORDERED T. PT TOLERATED IT WELL. NO ADVERSE DRUG REACTIONS NOTED.
[2020-06-24] VITALS: BP 110/56
--- NOTE | 2020-06-24 | NUR ---
VITAL SIGNS STABLE, AFEBRILE, SATING 93% ON 15L NRB . SB ON TELE MONITOR,HR-48. NO SIGN AND SYMPTOMS OF DISTRESS NOTED AT THIS TIME. NO COMPLAIN OF PAIN. CALL LIGHT WITHIN REACH.
--- NOTE | 2020-06-24 02:00 | NUR ---
PATIENT ASLEEP. VISIBLE CHEST RISE AND FALL NOTED. SAFETY MEASURES IN PLACED.
[2020-06-24 04:00] VITALS: BP 102/51
--- NOTE | 2020-06-24 04:00 | NUR ---
VITAL SIGNS STABLE, AFEBRILE, SATING 97% ON 15L NRB . SB ON TELE MONITOR,HR-49. NO SIGN AND SYMPTOMS OF DISTRESS NOTED AT THIS TIME. NO COMPLAIN OF PAIN. CALL LIGHT WITHIN REACH.
--- NOTE | 2020-06-24 06:17 | NUR ---
NO ACUTE EVENTS THROUGHOUT THE NIGHT. PT IS STABLE. PATIENT NOT IN ANY DISTRESS. NO COMPLAIN AT THIS TIME. ALL NEEDS ATTENDED. CALL LIGHT WITHIN REACH. WILL ENDORSE THE PT TO THE ONCOMING RN FOR CONTINUITY OF CARE.
[2020-06-24] MEDS: BLOOD GLUCOSE MONITORING 1 DEV DEV FS SCH ×4 (06:25→21:00)
[2020-06-24] MEDS: INSULIN LISPRO SLIDING SCALE 100 UNITS/ML VIAL SUBQ PRN ×4 (06:25→22:55)
--- NOTE | 2020-06-24 07:30 | NUR ---
PT STATES NO PAIN AND RESTING SEMI FOWLERS ON BED. TOLERATING NRB 15 LPM AT 96%. PT USUALLY BRADYCARDIC. B/L EDEMA ON LOWER EXTREMITIES TITI TIS NON PITTING. PT CALM AND COOPERATIVE WITH CARE.
[2020-06-24 08:00] VITALS: BP 124/82
[2020-06-24 08:51] LABS: BASOPHILS # (AUTO) 0.1 K/uL (0.00-0.22); BASOPHILS % (AUTO) 0.5 % (0.0-2.0); EOSINOPHILS % (AUTO) 0.3 % (0.0-4.0); HEMATOCRIT 30.6 % (36-52); HEMOGLOBIN 10.1 g/dL (12.0-18.0); LYMPHOCYTES # (AUTO) 1.5 K/uL (2.0-11.5); MEAN CORPUSCULAR HEMOGLOBIN 28 pg (27-31); MEAN CORPUSCULAR HGB CONC 33 g/dL (33-37); MONOCYTES # (AUTO) 0.9 K/uL (0.8-1.0); MONOCYTES % (AUTO) 6.1 % (1.7-9.3); NEUTROPHILS # (AUTO) 12.5 K/uL (1.8-7.7); NEUTROPHILS % (AUTO) 83.1 % (42.2-75.2); PLATELET COUNT (AUTO) 576 K/uL (140-450); RED BLOOD CELL COUNT(AUTO) 3.55 MIL/uL (4.20-6.10); RED CELL DISTRIBUTION WIDTH 12.9 % (11.6-13.7)
[2020-06-24] MEDS: ENOXAPARIN 80 MG/0.8 ML SYR SUBQ SCH ×2 (08:55→21:00)
[2020-06-24] MEDS: DEXAMETHASONE 10 MG/ML VIAL IVP SCH (09:03)
[2020-06-24] MEDS: amLODIPine 5 MG TAB PO SCH (09:04)
[2020-06-24] MEDS: ZINC SULF 220 MG CAP PO SCH ×2 (09:04→21:00)
[2020-06-24] MEDS: ASCORBIC ACID 500 MG TAB PO SCH ×2 (09:04→21:00)
[2020-06-24] MEDS: lisinopriL 10 MG TAB PO SCH (09:09)
--- NOTE | 2020-06-24 09:48 | NUR ---
PT STATES NOT PAIN AND SITTING AT THE SIDE OF THE BED.
[2020-06-24 10:09] LABS: ANION GAP 8.9 (8-16); CARBON DIOXIDE 31.7 mmol/L (21-32); CREATININE 0.7 mg/dL (0.6-1.3); POTASSIUM 4.6 mmol/L (3.5-5.1)
[2020-06-24 10:26] LABS: MAGNESIUM 1.9 mg/dL (1.8-2.4)
[2020-06-24 12:00] VITALS: BP 130/73
--- NOTE | 2020-06-24 12:07 | NUR ---
PT STATED NO PAIN AND SITTING ON CHAIR. PT STATED HE TOLERATED ACTIVITY AND PROCEEDED TO EAT.
--- NOTE | 2020-06-24 14:44 | NUR ---
PT STATES NO PAIN AND TOLERATING HFNC AT 10 LPM. PT STATES LESS FATIGUE W/ ACTIVITY WHEN DONE IN INCREMENTS.
[2020-06-24 16:00] VITALS: BP 112/80
--- NOTE | 2020-06-24 17:26 | NUR ---
PT STATED NO PAIN AND TOLERATING HFNC 10 LPM W/ HUMIDIFIER.
[2020-06-24] MEDS: guaiFENesin DM 200/20 MG-10 ML 10 ML UDC PO PRN (18:37)
--- NOTE | 2020-06-24 18:44 | NUR ---
PT SITTING IN CHAIR AND TOLERATING HFNC AT 10 LPM. PT STABLE AND WILL ENDORSE CARE TO ADMINISTRATIVE JOB TITLES RN.
--- NOTE | 2020-06-24 19:30 | NUR ---
RECEIVED REPORT FORM RN DAYSHIFT AT BEDSIDE FOR CONTINUITY OF CARE, PT IN STABLE CONDITION.
[2020-06-24 20:00] VITALS: BP 92/44
--- NOTE | 2020-06-24 20:00 | NUR ---
PT SITTING UP IN BED WITH HIGH FLOW N/C AT 10 LITERS.NO S/S OF PAIN OR DISTRESS NOTED. V/S FOLLOWS: T 97.2 P 60 R 15 BP 92/44 02 93%. ALL UNIVERSAL FALLS PRECAUTIONS IN PLACE.
[2020-06-24] MEDS: INSULIN LANTUS 100 UNITS/ML 10 ML VIAL SUBQ SCH (21:00)
--- NOTE | 2020-06-24 21:45 | NUR ---
PT SITTING UP IN BED N/C RUNNING AT 10LITERS. PT GIVEN ORDERED AND DUE MEDS. EDUCATION REGARDING MEDICATION PROVIDED AT BEDSIDE. PT ACKNOWLEDGED UNDERSTANDING. PT FINGERSTICK IS 385, PT GIVEN 10 UNITS OF HUMALOG PRE S/S. ALL UNIVERSAL FALLS PRECAUTIONS IN PLACE.
[2020-06-25] VITALS: BP 109/57
--- NOTE | 2020-06-25 | NUR ---
PT IN BED ASLEEP WITH 02 ON V/S FOLLOWS: T 98.6 P 62 R 18 B/P 109/57 02 93%.
--- NOTE | 2020-06-25 02:49 | NUR ---
PATIENT CHECKED. ON 11 LITERS NASAL CANULA WITH HUMIDIFIER. WATER ADDED TO THE CONTAINER. WILL CONTINUE TO MONITOR
[2020-06-25 04:00] VITALS: BP 105/49
[2020-06-25] MEDS: INSULIN LISPRO SLIDING SCALE 100 UNITS/ML VIAL SUBQ PRN ×4 (07:09→20:24)
[2020-06-25] MEDS: BLOOD GLUCOSE MONITORING 1 DEV DEV FS SCH ×4 (07:12→20:20)
[2020-06-25 08:00] VITALS: BP 89/50
[2020-06-25] MEDS: amLODIPine 5 MG TAB PO SCH (08:51)
[2020-06-25] MEDS: lisinopriL 10 MG TAB PO SCH (08:54)
[2020-06-25] MEDS: DEXAMETHASONE 10 MG/ML VIAL IVP SCH (08:56)
[2020-06-25] MEDS: ASCORBIC ACID 500 MG TAB PO SCH ×2 (09:01→20:20)
[2020-06-25] MEDS: ZINC SULF 220 MG CAP PO SCH ×2 (09:01→20:20)
[2020-06-25 09:58] LABS: BASOPHILS # (AUTO) 0.1 K/uL (0.00-0.22); BASOPHILS % (AUTO) 0.3 % (0.0-2.0); EOSINOPHILS # (AUTO) 0.1 K/uL (0-0.4); EOSINOPHILS % (AUTO) 0.3 % (0.0-4.0); HEMATOCRIT 26.1 % (36-52); HEMOGLOBIN 8.7 g/dL (12.0-18.0); LYMPHOCYTES # (AUTO) 2.5 K/uL (2.0-11.5); LYMPHOCYTES % (AUTO) 12.3 % (20.5-51.1); MEAN CORPUSCULAR HEMOGLOBIN 29 pg (27-31); MEAN CORPUSCULAR HGB CONC 33 g/dL (33-37); MEAN CORPUSCULAR VOLUME 86.7 fL (80-94); MONOCYTES # (AUTO) 1.3 K/uL (0.8-1.0); MONOCYTES % (AUTO) 6.4 % (1.7-9.3); NEUTROPHILS # (AUTO) 16.4 K/uL (1.8-7.7); NEUTROPHILS % (AUTO) 80.7 % (42.2-75.2); PLATELET COUNT (AUTO) 594 K/uL (140-450); RED BLOOD CELL COUNT(AUTO) 3.01 MIL/uL (4.20-6.10); RED CELL DISTRIBUTION WIDTH 12.8 % (11.6-13.7); WHITE BLOOD COUNT (AUTO) 20.3 K/uL (4.8-10.8)
[2020-06-25] MEDS: ENOXAPARIN 80 MG/0.8 ML SYR SUBQ SCH ×2 (10:17→20:21)
[2020-06-25 10:22] LABS: MAGNESIUM 2.1 mg/dL (1.8-2.4); PHOSPHORUS 4.1 mg/dL (2.5-4.9)
[2020-06-25 12:00] VITALS: BP 102/49
[2020-06-25 16:00] VITALS: BP 104/42
--- NOTE | 2020-06-25 19:30 | NUR ---
RECEIVED BEDSIDE REPORT FROM DAY RN. PT IS AAOX4. [place] SPEAKING. ON DROPLET ISOLATION FOR COVID 19. RESPIRATIONS ARE EQUAL AND UNLABORED ON 10L VIA H FLOW. LUNG SOUNDS ARE DIMINISHED. SKIN IS INTACT. IV ON L UPPER ARM 18 SL. POC DISCUSSED WITH PT. CALL LIGHT IS WITHIN REACH. WILL ROUND FREQUENTLY.
[2020-06-25 20:00] VITALS: BP 96/65
--- NOTE | 2020-06-25 20:20 | NUR ---
VSS. BLOOD SUGAR 356 ADMINISTERED INSULIN PER SLIDING SCALE. PANTERA MEDICATIONS GIVEN PER ORDERS. MED EDUCATION GIVEN. PT VERBALIZED UNDERSTANDING. ALL SAFETY MEASURES ARE IN PLACE. WILL ROUND FREQUENTLY.
[2020-06-25] MEDS: INSULIN LANTUS 100 UNITS/ML 10 ML VIAL SUBQ SCH (20:24)
[2020-06-26] VITALS (7 sets, daily range): BP systolic 95–106; BP diastolic 37–55
--- NOTE | 2020-06-26 | NUR ---
VITAL SIGNS ARE WITHIN NORMAL LIMITS. ALL NEEDS MET. CALL LIGHT IS WITHIN REACH.
--- NOTE | 2020-06-26 02:00 | NUR ---
MADE ROUNDS. PT IS SLEEPING COMFORTABLY. NO S/S OF DISTRESS. CALL LIGHT IS WITHIN REACH.
--- NOTE | 2020-06-26 04:00 | NUR ---
VITAL SIGNS ARE WITHIN NORMAL LIMITS. ALL SAFETY MEASURES ARE IN PLACE. CALL LIGHT IS WITHIN REACH. WILL CONTINUE TO MONITOR.
[2020-06-26] MEDS: INSULIN LISPRO SLIDING SCALE 100 UNITS/ML VIAL SUBQ PRN ×4 (06:41→20:49)
[2020-06-26] MEDS: BLOOD GLUCOSE MONITORING 1 DEV DEV FS SCH ×4 (06:41→20:44)
--- NOTE | 2020-06-26 07:30 | NUR ---
GAVE BEDSIDE REPORT TO DAY RN. PT ENDORSED IN STABLE CONDITION.
[2020-06-26] MEDS: lisinopriL 10 MG TAB PO SCH (09:00)
[2020-06-26] MEDS: amLODIPine 5 MG TAB PO SCH (09:00)
[2020-06-26 09:45] LABS: ANION GAP 7.9 (8-16); CARBON DIOXIDE 30.6 mmol/L (21-32); CREATININE 0.8 mg/dL (0.6-1.3); POTASSIUM 4.5 mmol/L (3.5-5.1)
[2020-06-26] MEDS: ASCORBIC ACID 500 MG TAB PO SCH ×2 (10:38→20:47)
[2020-06-26] MEDS: ZINC SULF 220 MG CAP PO SCH ×2 (10:38→20:47)
[2020-06-26] MEDS: DEXAMETHASONE 10 MG/ML VIAL IVP SCH (10:39)
[2020-06-26] MEDS: ENOXAPARIN 80 MG/0.8 ML SYR SUBQ SCH ×2 (10:40→20:49)
[2020-06-26] MEDS ORDERED: APIX2.5 PO (13:42)
--- NOTE | 2020-06-26 16:00 | NUR ---
NURSE CARE Blood glucose before breakfast was 224, and night nurse had given 4 units Humalog. Before lunch it was 337 and given 8 units Humalog. Before dinner is was 229 and given 4 units Humalog. Dinner taken 30%. VSS at 1600. BP 95/55 and o2 sat 94-98% with NRM 10 L/min
--- NOTE | 2020-06-26 16:06 | NUR ---
06/26/20 RD FOLLOW UP COMPLETED PLEASE REFER TO NUTRITION PROGRESS NOTE UNDER CARE ACTIVITY FOR ESTIMATED NUTRITION NEEDS. RD RECOMMENDATIONS: 1. RECOMMEND CONTINUE 60GM CCHO MECHANICAL SOFT DIET TOLERATED 2. RECOMMEND CONTINUE GLUCERNA BID 3. RD TO FOLLOW-UP 3-5 DAYS, MODERATE RISK FLORINDA NI MBA, RD
--- NOTE | 2020-06-26 19:30 | NUR ---
RECEIVED BEDSIDE REPORT FROM DAY RN. PT IS AAOX4. ITALIAN SPEAKING. ON DROPLET ISOLATION FOR COVID 19. RESPIRATIONS ARE EQUAL AND UNLABORED ON 15L VIA NRB. LUNG SOUNDS ARE DIMINISHED. SKIN IS INTACT. IV ON L UPPER ARM 22G SL. POC DISCUSSED WITH PT. CALL LIGHT IS WITHIN REACH. WILL ROUND FREQUENTLY.
--- NOTE | 2020-06-26 19:40 | NUR ---
BLOOD SUGAR 526. DAY RN HAD JUST GIVEN INSULIN 4U PT HAD JUST FINISHED DINNER HAD SUBWAY SANDWICH AND WAS DRINKING SPIRT. EDUCATED PT ON PROPER DIET. VERBALIZED UNDERSTANDING. WILL RECHECK BLOOD SUGAR.
--- NOTE | 2020-06-26 19:45 | NUR ---
GAVE BEDSIDE REPORT TO NIGHT RN- DAVID. PT ENDORSED IN STABLE CONDITION. HAS NONREBREATHER MASK AND REPORTED TO NURSE TO CHANGED TO O2 VIA NASAL CANULLA. DR CARR HAD CALLED AND HE WAS TOLD HOW THE PATIENT WAS BEING D/C HOME AND THAT IV WAS DC'D AND PATIENT TELEMETRY WAS TAKEN OFF, AFTER GIVEN D/C INSTRUCTIONS. HE HAD TAKEN OFF HIS O2 AND HE STARTED COUGHING, AND HE WAS SITTING ON THE SIDE OF THE BED, AND HE BECAME SEMI-CONSCIOUS. HIS ROOMMATE HAD A PULSE OXIMETER TO MEASURE O2 SAT AND IT WAS 70-80%. THIS NURSE HAD TO SCREAM FOR ASSISTANCE FOR PATIENT. OTHER NURSES CAME IN AND RAPID RESPONSE WAS CALLED. PATIENT WAS INCONTINENT OF URINE. ABLE TO STAND UP AND GIVEN O2 VIA NASAL CANULLA. NEEDED NONREBREATHER MASK AT 10 L/MIN. O2 SAT INCREASED TO 98-100%.
[2020-06-26] MEDS: INSULIN LANTUS 100 UNITS/ML 10 ML VIAL SUBQ SCH (20:50)
--- NOTE | 2020-06-26 20:50 | NUR ---
PTS BLOOD SUGAR DOWN TO 409 AFTER AN HOUR. ADMINISTERED INSULIN PER SLIDING SCALE 10U HUMALOG AND PANTERA LANTUS 10U. REMINDED PT ON PROPER DIET. PT WITH TWO SPIRT BOTTLES AT BEDSIDE ONE CLOSE THE OTHER IS 2/3 FULL. PT REFUSED TO THROW AWAY. BOTH WERE PUT AWAY AND URGED PT TO NOT DRINK PT VERBALIZED UNDERSTANDING. ALL NEED MET. CALL LIGHT IS WITHIN REACH.
--- NOTE | 2020-06-26 21:15 | NUR ---
PT WAS ON NRB 15L SAT 100% PLACED PT ON NC 5L SAT 96% NO S/S OF RESPIRATORY DISTRESS. CALL LIGHT IS WITHIN REACH. WILL MONITOR CLOSELY.
--- NOTE | 2020-06-27 | NUR ---
ROUNDS WERE MADE. PT SLEEPING COMFORTABLY IN BED WITH EYES CLOSED. CHEST RISE AND FALL NOTED. CALL LIGHT IS WITHIN REACH.
--- NOTE | 2020-06-27 02:15 | NUR ---
MADE ROUNDS. PT IS SLEEPING COMFORTABLY IN BED WITH EYES CLOSED. CHEST RISE AND FALL NOTED. ALL SAFETY MEASURES ARE IN PLACE. WILL CONTINUE TO MONITOR.
[2020-06-27 04:00] VITALS: BP 105/54
--- NOTE | 2020-06-27 04:00 | NUR ---
VITAL SIGNS ARE WITHIN NORMAL LIMITS. ALL SAFETY MEASURES ARE IN PLACE. CALL LIGHT IS WITHIN REACH.
[2020-06-27] MEDS: INSULIN LISPRO SLIDING SCALE 100 UNITS/ML VIAL SUBQ PRN ×4 (06:26→20:35)
[2020-06-27] MEDS: BLOOD GLUCOSE MONITORING 1 DEV DEV FS SCH ×4 (06:27→20:25)
--- NOTE | 2020-06-27 07:15 | NUR ---
REC'D REPRT FROM NIGHTSHIFT NURSE, PT N 4L NC, WAS TO HAV BEEN DISCHARGED, PT BECAME ILL AND WAS NOT RELEASED. CURRENTLY STABLE. CALL LIGHT WITHIN REACH, YUSUF 18 G SL.
--- NOTE | 2020-06-27 07:27 | NUR ---
GAVE BEDSIDE REPORT TO DAY RN. PT ENDORSED IN STABLE CONDITION.
[2020-06-27 08:00] VITALS: BP 104/61
[2020-06-27] MEDS: lisinopriL 10 MG TAB PO SCH (09:22)
[2020-06-27] MEDS: amLODIPine 5 MG TAB PO SCH (09:22)
[2020-06-27] MEDS: ASCORBIC ACID 500 MG TAB PO SCH ×2 (09:22→20:14)
--- NOTE | 2020-06-27 09:22 | NUR ---
ADMINISTERED MEDS ORDERED OR MD. PT TOLERATED PROCEDURE WELL. STABLE, COMFORTABLE IN BED. STATES DOES NOT EAT IN MORNING, DID NOT HAVE BREAKFAST.
[2020-06-27] MEDS: DEXAMETHASONE 10 MG/ML VIAL IVP SCH (09:23)
[2020-06-27] MEDS: ZINC SULF 220 MG CAP PO SCH ×2 (09:23→20:15)
[2020-06-27] MEDS: ENOXAPARIN 80 MG/0.8 ML SYR SUBQ SCH ×2 (09:25→20:16)
[2020-06-27 09:27] LABS: ANION GAP 10.5 (8-16); CARBON DIOXIDE 31.2 mmol/L (21-32); CREATININE 0.8 mg/dL (0.6-1.3); POTASSIUM 4.7 mmol/L (3.5-5.1)
--- NOTE | 2020-06-27 11:45 | NUR ---
BLOOD GLUCOSE LEVL 211. COVERED WITH 4 UNITS. TOLERATED PROCEDURE WELL
[2020-06-27 12:00] VITALS: BP 103/44
--- NOTE | 2020-06-27 13:00 | NUR ---
SPOKE TO LEASING SPECIALIST RE: DISCHARGE, THERE IS NO OXYGEN AVAILABLE TO DISPENSE TO PT FOR DISCHARGE, WILL NOTIFY WHEN OXYGEN TANK IS AVAILABLE
--- NOTE | 2020-06-27 14:15 | NUR ---
PT STABLE, RESTING IN BED, DENIES PAIN AT THIS TIME. 4L NC
[2020-06-27 16:00] VITALS: BP 97/37
--- NOTE | 2020-06-27 16:35 | NUR ---
BLOOD GLUCOSE LEVEL CHECKED . 331, COVERED WITH 8 UNITS OF HUMALOG
--- NOTE | 2020-06-27 19:10 | NUR ---
ENDORSED PT TO NIGHT NURSE. PT ON 4L NC, OXYGEN HAS NOT ARRIVED FOR DISCHARGE, PT STABLE.
--- NOTE | 2020-06-27 19:11 | NUR ---
RECD. SITTING ON BED, AWAKE, A/OX4. RESPIRATION EVEN AND UNLABORED. ON 02 AT 4 LITERS VIA N/C. GETS SOB ON EXERTION. USES THE URINAL. WITH DINNER ON THE TABLE, ATE ONLY 35%, NO APPETITE TO EAT. AWARE OF POSSIBLE DISCHARGE TONIGHT, MEDS TO BE GIVEN AND TREATMENT DISCUSSED, VERBALIZED UNDERSTANDING. DENIES PAIN 0/10.
--- NOTE | 2020-06-27 19:30 | NUR ---
FOUND PATIENT NEAR BED ALMOST FALLING DOWN. ASSISTED TO BED AND PUT BACK OXYGEN. HAD BM AND WENT TO THE BR AND ON GOING BACK TO BED FEELS VERY WEAK. INSTRUCTED PATIENT NOT TO OUT OF BED WITH ASSISTANCE BECAUSE HE MIGHT FALL. AGREED.
[2020-06-27 20:00] VITALS: BP 92/43
--- NOTE | 2020-06-27 20:00 | NUR ---
BOLT HEADER REPORTED 02 SAT IS 86% ON 4 LITERS N/C. WILL INFORMED RT.
[2020-06-27] MEDS: guaiFENesin DM 200/20 MG-10 ML 10 ML UDC PO PRN (20:26)
--- NOTE | 2020-06-27 20:26 | NUR ---
DUE MEDICATIONS AND SNACK FOR THE NIGHT GIVEN. DISCHARGE INSTRUCTIONS GIVEN. VERBALIZED UNDERSTANDING.
[2020-06-27] MEDS: INSULIN LANTUS 100 UNITS/ML 10 ML VIAL SUBQ SCH (20:39)
--- NOTE | 2020-06-27 20:50 | NUR ---
PATIENT STATED " MY DAUGHTER SAID THAT THE COMPANY DELIVERED 2 OXYGEN AT HOME, SHE IS COMING TO TAKE ME HOME WITH THE OXYGEN TANK." INSTRUCTED TO CALL NURSE WHEN DAUGHTER GETS TO THE HOSPITAL. OUTSIDE WINDOW TALKING TO PATIENT BY CELLPHONE.
--- NOTE | 2020-06-27 21:08 | NUR ---
PT SPO2 97% ON 4LNC HR 64 PT DENIES SOB AT THIS TIME AND INFORMED ME HE IS EXCITED FOR DC HOME
[2020-06-27 22:00] VITALS: BP 102/43
--- NOTE | 2020-06-27 22:30 | NUR ---
DAUGHTER CAME BRINGING 02 TANK.
--- NOTE | 2020-06-27 22:45 | NUR ---
IV SALINE LOCK TAKEN OUT. ALL BELONGINGS GATHERED AND GIVEN TO PATIENT. DISCHARGE PAPERS SIGNED BY PATIENT.
--- NOTE | 2020-06-27 23:00 | NUR ---
TAKEN TO HOSPITAL LOBBY PARKING IN STABLE CONDITION VIA W/C WITH PORTABLE 02 TANK BROUGHT BY DAUGHTER FOR DISCHARGE TO HOME TO WAITING PRIVATE VEHICLE.
== END 2020-06-27 23:00 | disposition home or self-care (01) | DRG 720 ==
LOC: MED 18:56 → MTU 21:42
PROVIDERS: ADMIT Hospitalist; ATTEND Hospitalist
PROC: XW033E5 Introduction of Remdesivir Anti-infective into Peripheral Vein, Percutaneous Approach, New Technology Group 5 (ICD-10-PCS; 2020-06-17)
PROC: XW13325 Transfusion of Convalescent Plasma (Nonautologous) into Peripheral Vein, Percutaneous Approach, New Technology Group 5 (ICD-10-PCS; principal; 2020-06-22)
DX: A41.9 Sepsis, unspecified organism (principal); U07.1 COVID-19; J96.01 Acute respiratory failure with hypoxia; J12.89 Other viral pneumonia; E66.9 Obesity, unspecified; I10 Essential (primary) hypertension; E11.9 Type 2 diabetes mellitus without complications; Z68.32 Body mass index [BMI] 32.0-32.9, adult; E44.0 Moderate protein-calorie malnutrition
CPT/HCPCS: 36415; 36600; 71045; 80048; 80053; 81003; 82550; 82728; 82803; 82948; 83036; 83605; 83615; 83735; 83880; 84100; 84484; 85025; 85379; 85384; 85610; 85730; 86140; 86886; 86900; 86901; 87040; 87081; 87086; 93005; 96361; 96365; 96367; 96375; 99291; J0456; J0696; J1100; J1650; J1815; J7060; P9017; U0003

== ENCOUNTER 2024-02-07 01:55 | Emergency (ER) | payer OTHER ==
[~2024-02-07] VITALS: Ht 157.5 cm; Wt 74.8 kg
[~2024-02-07 01:55] MED LIST: AMLO10TA89 PO; APIX2.5 PO; ASPI-1822 PO; LISI-951 PO; METF-1139 PO
[2024-02-07 02:08] VITALS: BP 164/91; PULSE 86; RESP 16; TEMP 97.2; O2SAT 98
[2024-02-07] MEDS: ACETAMINOPHEN EXTRA STRENGTH 500 MG TAB PO ONE (03:00)
[2024-02-07] MEDS: KETOROLAC 30 MG/ML VIAL IM ONE (04:04)
[2024-02-07] MEDS: lisinopriL 20 MG TAB PO ONE (04:04)
[2024-02-07 04:42] VITALS: BP 152/91; PULSE 86; RESP 16; TEMP 97.2; O2SAT 98
== END 2024-02-07 04:42 ==
LOC: MED 01:55
DX: I10 Essential (primary) hypertension (principal); R51.9 Headache, unspecified; E11.9 Type 2 diabetes mellitus without complications; Z79.82 Long term (current) use of aspirin; Z79.899 Other long term (current) drug therapy; Z79.01 Long term (current) use of anticoagulants
CPT/HCPCS: 96372; 99283; J1885